=== PATIENT | female | born 1990 | race African-American/Black ===

== ENCOUNTER 2022-02-01 11:40 | Emergency (ER) | payer SELFPAY ==
[~2022-02-01] VITALS: Ht 177.8 cm; Wt 63.6 kg
[2022-02-01 11:45] VITALS: BP 125/74
[2022-02-01 12:08] LABS: COVID AG,FIA SOURCE NASOPHARYNGEAL
== END 2022-02-01 12:58 | disposition home or self-care (01) ==
LOC: EMS 11:40
DX: Z20.822 Contact with and (suspected) exposure to COVID-19 (principal)
CPT/HCPCS: 99283

== ENCOUNTER 2022-02-21 09:22 | Emergency (ER) | payer MEDICAID ==
[~2022-02-21] VITALS: Ht 177.8 cm; Wt 63.6 kg
[2022-02-21 09:51] VITALS: BP 120/88
[2022-02-21 10:35] LABS: COVID AG,FIA SOURCE NASOPHARYNGEAL
== END 2022-02-21 11:01 | disposition home or self-care (01) ==
LOC: EMS 09:23
DX: Z20.822 Contact with and (suspected) exposure to COVID-19 (principal)
CPT/HCPCS: 99283